=== PATIENT | male | born 1980 | race Two or more races ===

== ENCOUNTER 2020-10-11 12:23 | Outpatient (CLI) | payer BC | END 2020-10-11 23:59 | disposition home or self-care (01) | LOC: LAB 12:23 | PROVIDERS: ATTEND Surgery | DX: Z01.812 Encounter for preprocedural laboratory examination (principal); Z20.828 Contact with and (suspected) exposure to other viral communicable diseases | CPT/HCPCS: 87426; C9803 ×2; U0003 ==